=== PATIENT | female | born 1995 | race Caucasian/White ===

== ENCOUNTER 2018-04-01 15:17 | Emergency (ER) | payer SELFPAY ==
--- NOTE | 2018-04-01 16:42 | RAD ---
4 VIEWS LEFT KNEE: Date: 04/01/18 COMPARISON: None. HISTORY: Knee buckled, injury, pain. FINDINGS: Four view examination of the left knee demonstrates a nonspecific small left knee joint effusion. No displaced fracture or evidence of dislocation is seen. IMPRESSION: Nonspecific small knee joint effusion. No acute fracture or dislocation seen. If there is clinical co ncern for internal derangement, follow-up MRI suggested. POS: [facility]
== END 2018-04-01 16:03 | disposition home or self-care (01) ==
LOC: SCSER 15:17
DX: S83.92XA Sprain of unspecified site of left knee, initial encounter (principal); M25.462 Effusion, left knee; X50.1XXA Overexertion from prolonged static or awkward postures, initial encounter